=== PATIENT | female | born 1975 ===

== ENCOUNTER 2017-10-28 01:37 | Emergency (ER) | payer OTHER ==
[2017-10-28 02:01] VITALS: BP 118/78; PULSE 65; RESP 17; TEMP 97.7; O2SAT 98
[2017-10-28 02:04] VITALS: BMI 27.6
--- NOTE | 2017-10-28 02:24 | ED PDOC ---
Arrival/HPI - General Chief Complaint: Chest Pain Time Seen by Provider: 10/28/17 01:46 Historian: Patient - History of Present Illness Narrative History of Present Illness (Text): 10/28/17 02:15 42 year old female, with no significant past medical history, presents to the emergency department complaining of episodes of intermittent chest discomfort radiating to the left arm this morning. Patient describes as a pressing sensation.No SOB. She states this had happen to her on occasions in the past. Patient denies any symptoms currently. Patient denies smoking or drug use. Patient denies any fever, chills, cough, nausea, vomiting, diarrhea, urinary symptoms, back pain, neck pain, leg pain, headache, dizziness, or any other complaints. Time/Duration: Other (this morning) Symptom Onset: Gradual Symptom Course: Resolved Quality: Other (Pressing) Activities at Onset: Light Context: Home Past Medical History - Provider Review Nursing Documentation Reviewed: Yes - Infectious Disease Hx of Infectious Diseases: None - Psychiatric Hx Substance Use: No - Anesthesia Hx Anesthesia: No Family/Social History - Physician Review Nursing Documentation Reviewed: Yes Family/Social History: No Known Family HX Smoking Status: Never Smoked Hx Alcohol Use: No Hx Substance Use: No Allergies/Home Meds Allergies/Adverse Reactions: Allergies No Known Allergies Allergy (Unverified 10/28/17 02:08) Home Medications: Home Meds Medication Instructions Recorded Confirmed No Known Home Med 10/28/17 10/28/17 Review of Systems - Physician Review All systems were reviewed & negative as marked: Yes - Review of Systems Constitutional: absent: Fevers, Other (Chills) Respiratory: SOB. absent: Cough Cardiovascular: Chest Pain Gastrointestinal: absent: Diarrhea, Nausea, Vomiting Genitourinary Female: absent: Dysuria, Frequency, Hematuria Musculoskeletal: absent: Back Pain, Neck Pain Neurological: absent: Headache, Dizziness, Other (leg pain) Physical Exam Vital Signs Reviewed: Yes Vital Signs Temp Pulse Resp BP Pulse Ox 10/28/17 02:00 97.7 F 65 17 118/78 98 Temperature: Afebrile Blood Pressure: Normal Pulse: Regular Respiratory Rate: Normal Appearance: Positive for: Well-Appearing, Non-Toxic, Comfortable Pain Distress: None Mental Status: Positive for: Alert and Oriented X 3 - Systems Exam Head: Present: Atraumatic, Normocephalic Pupils: Present: PERRL Extroacular Muscles: Present: EOMI Conjunctiva: Present: Normal Mouth: Present: Moist Mucous Membranes Neck: Present: Normal Range of Motion Respiratory/Chest: Present: Clear to Auscultation, Good Air Exchange. No: Respiratory Distress, Accessory Muscle Use Cardiovascular: Present: Regular Rate and Rhythm, Normal S1, S2. No: Murmurs Abdomen: No: Tenderness, Distention, Peritoneal Signs Back: Present: Normal Inspection Upper Extremity: Present: Normal Inspection. No: Cyanosis, Edema Lower Extremity: Present: Normal Inspection. No: Edema Neurological: Present: GCS=15, CN II-XII Intact, Speech Normal Skin: Present: Warm, Dry, Normal Color. No: Rashes Psychiatric: Present: Alert, Oriented x 3, Normal Insight, Normal Concentration Medical Decision Making ED Course and Treatment: 10/28/17 02:15 Impression: 42 year old female presents complaining of intermittent chest discomfort radiating to the left arm that began this morning. Plan: -- EKG -- Labs -- Chest X-ray -- Reassess and disposition Prior Visits: Notes and results from previous visits were reviewed. Patient was last seen in the emergency department on Progress Notes: EKG shows NSR at 74 BPM with normal EKG. Interpreted by me. 10/28/17 04:09 CXR Impression: As read by me, no acute process. 10/28/17 04:22 Leaving Against Medical Advice (AMA): The patient is choosing to leave against medical advice. I have personally explained to the patient that choosing to do so may result in permanent bodily harm or . I have discussed at great length that without further evaluation and monitoring there may be unforeseen circumstances and/or deterioration causing permanent bodily harm or as a result of their choice. The patient is alert, oriented, and shows the mental capacity to make clear decisions regarding the patients health care at this time. The patient continues to wish to leave against medical advice. In light of the patients decision to leave against medical advice, follow-up has been arranged and the patient is aware of the importance to following up as instructed. The patient has been advised that they should return to the emergency room immediately if they change their mind at any time, or if their condition begins to change or worsen in any way. - Lab Interpretations Lab Results: 10/28/17 02:45 10/28/17 02:45 Lab Results 10/28/17 02:45: WBC 8.2, RBC 4.72, Hgb 13.9, Hct 41.3, MCV 87.5, MCH 29.4, MCHC 33.7, RDW 12.7, Plt Count 241, MPV 10.4 10/28/17 02:45: Sodium 139, Potassium 4.2, Chloride 104, Carbon Dioxide 24, Anion Gap 15, BUN 7, Creatinine 0.6 L, Est GFR ( Amer) > 60, Est GFR (Non -Af Amer) > 60, Random Glucose 97, Calcium 9.4, Total Bilirubin 0.8, AST 34, ALT 24, Alkaline Phosphatase 63, Lactate Dehydrogenase 589, Total Creatine Kinase 72, Troponin I < 0.01, Total Protein 8.2, Albumin 4.5, Globulin 3.7, Albumin/Globulin Ratio 1.2 10/28/17 02:45: PT 12.1, INR 1.06, APTT 29.8 I have reviewed the lab results: Yes - RAD Interpretation Radiology Orders: 10/28/17 02:08 CHEST PORTABLE [RAD] Stat - EKG Interpretation Interpreted by ED Physician: Yes Type: 12 lead EKG - Scribe Statement The provider has reviewed the documentation as recorded by the Stephania Munguia Provider Scribe Attestation: All medical record entries made by the Stephania were at my direction and personally dictated by me. I have reviewed the chart and agree that the record accurately reflects my personal performance of the history, physical exam, medical decision making, and the department course for this patient. I have also personally directed, reviewed, and agree with the discharge instructions and disposition. Disposition/Present on Arrival - Present on Arrival Any Indicators Present on Arrival: No History of DVT/PE: No History of Uncontrolled Diabetes: No Urinary Catheter: No History of Decub. Ulcer: No History Surgical Site Infection Following: None - Disposition Have Diagnosis and Disposition been Completed?: Yes Diagnosis: Chest pain Disposition: AGAINST MEDICAL ADVICE Disposition Time: 04:39 Condition: STABLE Discharge Instructions (ExitCare): Chest Pain (ED) Referrals: Addie Multani MD [Primary Care Provider] - Follow up with primary Forms: [employer] (Albanian)
[2017-10-28 02:55] LABS: HEMOGLOBIN 13.9 g/dL (12.0-16.0); MEAN CELL VOLUME 87.5 fl (80.0-105.0); MEAN CORPUSCULAR HEMOGLOBIN 29.4 pg (25.0-35.0); MEAN CORPUSCULAR HGB CONC 33.7 g/dl (31.0-37.0); MEAN PLATELET VOLUME 10.4 fl (7.0-11.0); RBC 4.72 10^6/uL (3.5-6.1); RED CELL DISTRIBUTION WIDTH 12.7 % (11.5-14.5); WHITE BLOOD COUNT 8.2 10^3/ul (4.5-11.0)
[2017-10-28 03:03] LABS: INR 1.06; PARTIAL THROMBOPLASTIN TIME 29.8 Seconds (25.1-36.5); PROTHROMBIN TIME 12.1 SECONDS (9.4-12.5)
[2017-10-28 03:17] LABS: BLOOD UREA NITROGEN 7 mg/dL (7-21); CALCIUM 9.4 mg/dL (8.4-10.5); GFR NON-AFRICAN AMERICAN > 60
[2017-10-28 03:28] LABS: ALB/GLOB RATIO 1.2 (1.1-1.8); ALBUMIN 4.5 g/dL (3.0-4.8); ALT/SGPT 24 U/L (7-56); AST/SGOT 34 U/L (14-36)
[2017-10-28 03:39] LABS: TROPONIN I < 0.01 ng/mL
--- NOTE | 2017-10-28 12:36 | RAD ---
Date of service: 10/28/2017 HISTORY: chest pain COMPARISON: No prior. FINDINGS: LUNGS: No active pulmonary disease. PLEURA: No significant pleural effusion identified, no pneumothorax apparent. CARDIOVASCULAR: Normal. OSSEOUS STRUCTURES: No significant abnormalities. VISUALIZED UPPER ABDOMEN: Normal. OTHER FINDINGS: None. IMPRESSION: No active disease.
--- NOTE | 2017-10-28 14:01 | CARD ---
APPROVED REPORT Date of service: 10/28/2017 EKG Measurement Heart [id number] <Conclusion> Normal sinus rhythm Normal ECG
== END 2017-10-28 04:40 | disposition left against medical advice (07) ==
LOC: ED 01:37
DX: R07.89 Other chest pain (principal)